=== PATIENT | male | born 1995 | race Caucasian/White ===

== ENCOUNTER → 2018-10-02 | Day surgery (SDC) | payer BC ==
[2018-09-27 11:45] VITALS: BMI 25.5
[~2018-10-02] MED LIST: LACTATED RINGERS 1,000 ML IV ONE; LACTATED RINGERS 1,000 ML IV SCH; LIDOCAINE 1% 20 ML VIAL (10MG/ML) FOR IV START INTRADERMA ONE; LIDOCAINE 1% 20 ML VIAL (10MG/ML) FOR IV START INTRADERMA PRN; LIDOCAINE 1% INJ 10MG/ML (20 ML MDV) ONE; MIDAZOLAM 2 MG/2 ML VIAL ONE; PROPOFOL 10 MG/ML 20 ML VIAL IV ONE; fentaNYL (PF) 50 MCG/ML 2 ML AMP ONE
[2018-10-02 08:41] VITALS: RESP 18; TEMP 97.8
--- NOTE | 2018-10-02 10:05 | P.PCN ---
Date of Procedure: 10/02/18 Procedure(s) Performed: Brief history: Patient is a pleasant 22-year-old white male, scheduled for an elective upper endoscopy as well as colonoscopy as a part of evaluation of lower abdominal pain , chronic diarrhea for the last 1 year duration. She has intermittent episodes of nausea vomiting also. He lost 20 pounds in the last 2 years. His and scheduled for an upper endoscopy as well as colonoscopy to evaluate for inflammatory bowel disease Procedure performed: Esophagogastroduodenoscopy with biopsy Colonoscopy with biopsy Preoperative diagnosis: Intermittent nausea vomiting Chronic diarrhea Progressive weight loss Anesthesia: MAC Procedure: After informed consent was obtained from the patient was brought into the endoscopy unit and IV sedation was administered by anesthesia under continuous monitoring. Initially upper endoscopy was done. The Olympus GF 160 video endoscope was inserted inserted into the mouth and esophagus intubated without any difficulty and was gradually advanced into the stomach and duodenum and carefully examined. The bulb and second part of the duodenum appeared normal. Biopsies were done from the duodenum to rule out celiac disease. The scope was then withdrawn into the stomach adequately insufflated with air and upon careful examination the antrum had mild gastritis and biopsies were done from this area. The body, cardia and fundus appeared normal. The scope was then withdrawn into the esophagus. Small hiatal hernia noted. The GE junction was located there were linear erosions noted in the distal esophagus consistent with LA grade B reflux esophagitis. Rest of the esophagus appeared normal. Patient tolerated the procedure well. At this time the patient continued to remain sedation. Initial digital rectal examination was normal. Olympus CF 160 video colonoscope was then inserted into the rectum and gradually advanced to the cecum without any difficulty. Careful examination was performed as the scope was gradually being withdrawn. The prep was excellent. Terminal ileum was intubated and 20 cm visualized and appeared normal. Biopsies were done from this area. The cecum, ascending colon , transverse colon, descending colon, sigmoid colon and rectum appeared normal. Random biopsies were done from ascending and descending colon to rule out microscope/collagenous colitis. 2 mm small rectal polyp identified which was removed by biopsy. Retroflexion was performed in the rectum and no lesions were noted. Patient tolerated the procedure well. Impression: 1. Upper endoscopy revealed mild antral gastritis, small hiatal hernia and LA grade B reflux esophagitis. 2. Colonoscopy was essentially within normal limits with no evidence of colitis. 2 mm rectal polyp status post biopsy Recommendations: Findings of this examination were discussed with the patient as well as his family. He was advised to follow with the biopsy results. He'll be seen in office in 2 weeks.
[2018-10-02 10:39] VITALS: BP 129/83; PULSE 75
--- NOTE | 2018-10-04 16:28 | CDI ---
Date: 10/04/18 CDS/Charge Master Coordinator Name: Dalila Plata Phone: If any questions, call Kristyn Ferrell Exercise Scientist at [phone] Patient Name: Pradeep Whitten Admit Date: 10/02/18 Discharge Date: 10/02/18 ATTENTION: The [facility] Coding Staff appreciate your assistance in clarifying documentation. Please respond to the clarification below the line at the bottom and electronically sign. The [facility] Coding staff will review the response and follow-up if needed. Please note: Queries are made part of the Legal Health Record. If you have any questions, please contact the Exercise Scientist. Dear Dr. Rolon Please provide clarification as to what type of biopsy was used to removed the rectal biopsy. Please clarify if ti was a hot or cold biopsy. Thank you for your kind consideration. Rectal polyp was removed by cold biopsy Turner MTDD
== END ==
LOC: ORWHC2ENDO 08:13
PROVIDERS: ATTEND Internal Medicine Gastroenterology
DX: K29.50 Unspecified chronic gastritis without bleeding (principal); D12.8 Benign neoplasm of rectum; K44.9 Diaphragmatic hernia without obstruction or gangrene; K22.10 Ulcer of esophagus without bleeding; K52.9 Noninfective gastroenteritis and colitis, unspecified; K21.0 Gastro-esophageal reflux disease with esophagitis; F17.200 Nicotine dependence, unspecified, uncomplicated; F90.9 Attention-deficit hyperactivity disorder, unspecified type; Z79.899 Other long term (current) drug therapy
CPT/HCPCS: 88305; 45380; 43239; J2250; J2001; J3010; J2704

== ENCOUNTER 2019-08-30 10:40 | Emergency (ER) | payer BC ==
[2019-08-30 10:57] VITALS: BP 118/70; PULSE 105; RESP 18; TEMP 98.4
[2019-08-30] MEDS ORDERED: AMPICILLIN-SULBACTAM 3 GM in SODIUM CHLORIDE 0.9% 100 ML IVPB STA (11:07)
[2019-08-30] MEDS ORDERED: DIPH,PERTUS(ACELL)TETVAC-LF 0.5 ML VIAL IM ONE (11:09)
[2019-08-30] MEDS ORDERED: RABIES VACCINE (PCEC) 2.5 UNIT KIT IM ONE (11:10)
[2019-08-30] MEDS ORDERED: RABIES IMMUNE GLOB 300 UNIT/ML 1 ML VIAL IM ONE (11:10)
[2019-08-30] MEDS ORDERED: RABIES IMMUNE GLOB 300 UNIT/ML 5 ML VIAL IM ONE (11:15)
[2019-08-30] MEDS ORDERED: KETOROLAC 30 MG/ML 1 ML VIAL IVP STA (11:16)
[2019-08-30] MEDS ORDERED: LIDOCAINE 1% INJ 10MG/ML (20 ML MDV) SQ ONE (11:19)
--- NOTE | 2019-08-30 11:20 | ED ---
General Adult HPI - General Chief complaint: Extremity Injury, Upper Stated complaint: Right Hand/Face Injury - Animal Time Seen by Provider: 08/30/19 11:00 Source: patient Mode of arrival: ambulatory Limitations: no limitations - History of Present Illness Initial comments: Dictation was produced using [employer] dictation software. please excuse any grammatical, word or spelling errors. Chief Complaint: 23-year-old male with no past medical history presents after animal bite. History of Present Illness: 23-year-old male he states that last night at approximately one to 2 AM he hurt his dog barking outside. He went out with a flashlight when he was attacked by unknown animal. States it was likely coyote or possibly even a patton. States probably more of a coyote. Patient states he was bit in the right hand and face. After the injury the animal fled he got back to the house and irrigated his wound with water and iodine. He did not have transportation until this morning when he came to the emergency department. Patient does not know when his last tetanus was. Denies any numbness tingling of the hand. The ROS documented in this emergency department record has been reviewed and confirmed by me. Those systems with pertinent positive or negative responses have been documented in the HPI. All other systems are other negative and/or noncontributory. PHYSICAL EXAM: General Impression: Alert and oriented x3, not in acute distress HEENT: Normocephalic atraumatic, extra-ocular movements intact, pupils equal and reactive to light bilaterally, mucous membranes moist. Cardiovascular: Heart regular rate and rhythm, S1&S2 audible, no murmurs, rubs or gallops Chest: Lungs clear to auscultation bilaterally, no rhonchi, no wheeze, no rales Abdomen: Bowel sounds present, abdomen soft, non-tender, non-distended, no organomegaly Musculoskeletal: Pulses present and equal in all extremities, no peripheral edema Right hand: Multiple puncture wounds to the dorsum of the right hand. 1 cm laceration to the web space between second and third digit. Couple puncture wounds to the palmar aspect of the hand. Motor: no focal deficits noted Neurological: CN II-XII grossly intact, no focal motor or sensory deficits noted Skin: Abrasions to the left face Psych: Normal affect and mood ED course: 23-year-old male presents with animal bite. As upon arrival are within acceptable limits. It's unclear what that his hand. Clinical concern for rabies. Patient given rabies vaccine and rabies immunoglobulin locally into the lacerations to the right hand. Small amount with injected into the left face. Wound irrigated at bedside. Patient given 1 dose of Unasyn IV. X-rays unremarkable for fracture of the does show evidence of soft tissue injury. There is some erythema around the wound. Patient given prescription for Augmentin. Patient told to return to the emergency department for subsequent injections on day 3, 7 and 14. Patient understandable agreeable to plan. Still to return if his wound becomes more painful and red. Lacerations to the palmar aspect of his hand were sutured loosely. Patient understandable and agreeable to disposition. Patient given instructions on - Related Data Home Medications Medication Instructions Recorded Confirmed Dextroamphetamine/Amphetamine 20 mg PO DAILY 10/02/18 10/02/18 [Adderall] Previous Rx's Medication Instructions Recorded Amoxic-Pot Clav 875-125Mg 1 tab PO BID 10 Days #20 tab 08/30/19 [Augmentin 875-125] Allergies Allergy/AdvReac Type Severity Reaction Status Date / Time No Known Allergies Allergy Verified 09/27/18 11:41 Review of Systems ROS Statement: Those systems with pertinent positive or pertinent negative responses have been documented in the HPI. ROS Other: All systems not noted in ROS Statement are negative. Past Medical History Past Medical History: GERD/Reflux Additional Past Medical History / Comment(s): HAS BEEN HAVING ABD. PAIN, N/V, CHANGE IN BOWEL MOVEMENTS-POSSIBLE CROHN'S History of Any Multi-Drug Resistant Organisms: None Reported Past Surgical History: No Surgical Hx Reported Past Anesthesia/Blood Transfusion Reactions: No Reported Reaction Past Psychological History: ADD/ADHD Smoking Status: Current every day smoker Past Alcohol Use History: Occasional Past Drug Use History: Marijuana - Past Family History Mother Family Medical History: No Reported History General Exam Limitations: no limitations Course Vital Signs 08/30/19 10:54 Temperature 98.4 F Pulse Rate 105 H Respiratory 18 Rate Blood Pressure 118/70 O2 Sat by Pulse 98 Oximetry Procedures - Laceration Laceration #1 Consent Obtained: verbal consent Indication: laceration Site: hand Description: linear (total of 2 cm) Depth: simple, single layer Anesthetic Used: lidocaine 1% Anesthesia Technique: local infiltration Pre-repair: wound explored, irrigated extensively Type of Sutures: nylon Size of Sutures: 4-0 Technique: simple, interrupted Patient Tolerated Procedure: well Disposition Clinical Impression: Animal bite, Laceration Disposition: HOME SELF-CARE Condition: Good Instructions (If sedation given, give patient instructions): Rabies Vaccine (By injection), Rabies Immune Globulin (By injection), Rabies (ED) Additional Instructions: return to emergency department 09/02, 09/06, and 09/13 for subsequent rabies vaccine injections sutures to be removed in 10-14 days antibiotics sent to local pharmacy Prescriptions: Amoxic-Pot Clav 875-125Mg [Augmentin 875-125] 1 tab PO BID 10 Days #20 tab Is patient prescribed a controlled substance at d/c from ED?: No Referrals: Dharmesh Fair DO [Primary Care Provider] - 1-2 days Time of Disposition: 12:34
--- NOTE | 2019-08-30 11:39 | XR ---
EXAMINATION TYPE: XR hand complete RT , 4 VIEWS DATE OF EXAM ORDERED: 08/30/2019 HISTORY: animal bite. COMPARISON: None. FINDINGS: There is swelling over the dorsum of the hand. No fracture or dislocation is seen. No radi opaque foreign body is seen. There is some subcutaneous emphysema overlying the dorsum of the hand. IMPRESSION: SOFT TISSUE INJURY
--- NOTE | 2019-08-30 12:37 | ED ---
Disposition Clinical Impression: Animal bite, Laceration Disposition: HOME SELF-CARE Condition: Good Instructions (If sedation given, give patient instructions): Rabies Vaccine (By injection), Rabies Immune Globulin (By injection), Rabies (ED) Additional Instructions: return to emergency department 09/02, 09/06, and 09/13 for subsequent rabies vaccine injections sutures to be removed in 10-14 days antibiotics sent to local pharmacy Prescriptions: Amoxic-Pot Clav 875-125Mg [Augmentin 875-125] 1 tab PO BID 10 Days #20 tab HYDROcodone/APAP 5-325MG [[place] 5-325] 1 tab PO Q6HR PRN 3 Days #12 tab PRN Reason: Severe Pain Is patient prescribed a controlled substance at d/c from ED?: Yes If prescribed controlled substance>3 days was MAPS reviewed?: Prescribed <3 Days Referrals: Dharmesh Fair DO [Primary Care Provider] - 1-2 days Decision Time: 12:37
== END 2019-08-30 12:43 | disposition home or self-care (01) ==
LOC: EC 10:40
DX: S61.411A Laceration without foreign body of right hand, initial encounter (principal); Z23 Encounter for immunization; Z20.3 Contact with and (suspected) exposure to rabies; F17.200 Nicotine dependence, unspecified, uncomplicated; Z79.899 Other long term (current) drug therapy; W54.0XXA Bitten by dog, initial encounter
CPT/HCPCS: 73130; 90675; 90715; 90375; 99283; 12011; 96365; 96375; 90471; 96372 ×2; J2001; J1885; J0295